=== PATIENT | male | born 1960 | race Caucasian/White ===

== ENCOUNTER 2019-05-31 15:24 | Outpatient (REF) | payer BC, SELFPAY ==
[2019-05-31 19:33] LABS: ALT 43 U/L (12-78); AST 20 U/L (15-37); Albumin 3.9 g/dL (3.4-5.0); Alkaline Phosphatase 73 U/L (46-116); Anion Gap 9.3 mmol/L (3-11); BUN 19 mg/dL (7-18); Bilirubin, Total 0.9 mg/dL (0.2-1.0); CO2 25.7 mmol/L (21.0-32.0); CREATININE 0.91 mg/dL (0.70-1.30); Calcium 9.2 mg/dL (8.5-10.1); Calculated LDL 196 mg/dL; Chloride 105 mmol/L (98-107); Cholesterol 288 mg/dL (50-200); Glucose 115 mg/dL (70-100); HDL Cholesterol 77 mg/dL (40-60); Potassium 4.6 mmol/L (3.5-5.1); Sodium 140 mmol/L (136-145); Total Protein 6.7 g/dL (6.4-8.2); Triglyceride 75 mg/dL (30-150)
== END 2019-05-31 15:44 ==
LOC: NCHCN 15:24
PROVIDERS: PCP Nurse Practitioner; Visit Provider Nurse Practitioner
DX: E78.5 Hyperlipidemia, unspecified (principal)
CPT/HCPCS: 80053; 80061; 83721

== ENCOUNTER 2019-08-23 10:06 | Day surgery (SDC) | payer BC, SELFPAY ==
--- NOTE | 2019-08-23 06:49 | W.COLOREPORT ---
Date of service: 08/23/19 Time of Service: 11:32 Colonoscopy Report Date of procedure: 08/23/19 Pre-op diagnosis general: Colon Cancer Screening Post-op diagnosis procedure note: same Procedure: Colonoscopy Surgeon: Debbie Tavares Anesthesia proc note operative: other (General/ ASA 2/Shadia Ventura, RUTHY) Estimated blood loss (mL): 0 Pathology: none sent Complications: None Disposition: same day Indications: Mr. Johnson is a pleasant 59 year old male seen in the office for a screening colonoscopy. Risks, benefits and complications have been reviewed. Complications include but are not limited to bleeding, pain, perforation, missed small lesion/polyp, sore throat, aspiration and adverse reaction to the medications. Questions were entertained and answered to their satisfaction and they wished to proceed. No guarantees were given or implied. Prep: Miralax/Dulcolax Procedure Start Time: 11:32 Procedure End Time: 11:49 Retraction Time: 10 minutes Findings: Normal colon Procedure Description: After informed consent was obtained the patient was taken to the procedure room and placed in a left decubitous position. Monitors were applied and a time out was done. The patients name, date of , procedure, allergies to medications and metal in their body was reviewed. The patient was then sedated. Once sedated and comfortable a rectal exam was done. External exam was normal. Internal exam revealed a normal sphincter tone and no palpable masses. The prostate felt smooth. The scope was then introduced and retro-flexed. No internal hemorrhoids were identified. The scope was then advanced to the cecum without difficulty. The TI and appendiceal orifice were identified. The prep was adequate. The scope was then slowly retracted over 10 minutes back into the rectum. There were no polyps and no diverticula. The scope was removed and the patient was woken up and taken back to Same day surgery in stable condition. The patient tolerated the procedure well and there were no immediate complications. Follow up: The patient should follow up in 10 years unless they develop changes in bowel habits or other new gastrointestinal complaints.
--- NOTE | 2019-08-23 06:50 | W.PM.DSUDISC ---
Discharge Plan Disposition Patient Disposition: HOME Condition: Good Discharge Details Reason For Visit: Colon Cancer Screening Attending Provider: Debbie Tavares Primary Care Provider: Lorraine Contreras Home Meds and New Rx's Prescriptions: Continued atorvastatin 20 mg tablet 20 mg PO QHS RF: 0 Discontinued polyethylene glycol 3350 17 gram/dose powder 238 g PO ONCE Qty: 238 RF: 0 bisacodyl [Dulcolax (bisacodyl)] 5 mg tablet,delayed release (DR/EC) 5 mg PO ONCE Qty: 4 RF: 0 Discharge Instructions Instructions: Colonoscopy (DC) Additional Instructions: Findings: Normal colonoscopy Follow up: 10 years Please call if you develop: fevers >101.5 Nausea or Vomiting Abdominal pain that is not transient DAY SURGERY UNIT POST ENDOSCOPY INSTRUCTIONS 1. Because there will be medication in your system for the next 24 hours, you may feel a little sleepy. Your coordination will be affected. Therefore: a. Do not drive or operate dangerous equipment for 24 hours. b. Do not drink alcohol beverages for 24 hours (not even beer). c. Plan to go home and rest for the day. 2. Generally there are no restrictions on your activity after a day or so has gone by, but you may feel a bit fatigued for a few days. 3 After you arrive home you may have a light meal and return to a normal diet as you can tolerate it without feeling sick to your stomach. 4. After surgery, you may feel pain or discomfort. This should be only transient, but if it persists please contact your doctor. 5. If there are any questions regarding the findings of your procedure, please feel free to contact your doctor. 6. If you are unable to contact your doctor with a problem, contact the hospital at [phone]. 7. Continue all your regular medications unless directed otherwise. I understand the above instructions and have no questions. Signature of Patient or Responsible Adult Escort Date/Time Name of Responsible Adult Escort Signature of Nurse Date/Time Stand Alone Forms: Colonoscopy Post Instructions, Giorgio Lim (DSU) Activity:: Activity as Tolerated Diet:: As Tolerated Discharge Orders Discharge Orders: Discharge Order (Routine); Ordered 08/23/19 Ordered By: Debbie Tavares Discharge Data Discharge Date/Time-TO BE ENTERED AT DEPARTURE: 08/23/19 12:25 Discharge Comment: D/C home with , VSS, ambulating well DS: Diagnosis Discharge Diagnosis (1) S/P colonoscopy: Status: Acute
[2019-08-23 10:22] VITALS: BP 125/81; PULSE 66; RESP 16; TEMP 36.3; O2SAT 98
[2019-08-23] MEDS: Lactated Ringers 1,000 ML 80 ML IV (10:46)
[2019-08-23 12:25] VITALS: BP 122/77; PULSE 50; RESP 16; TEMP 36.3; O2SAT 97
== END 2019-08-23 12:25 | disposition home or self-care (01) ==
PROVIDERS: PCP Nurse Practitioner; Visit Provider Surgery
PROC: 0DJD8ZZ Inspection of Lower Intestinal Tract, Via Natural or Artificial Opening Endoscopic (ICD-10-PCS; CPT 45378; principal; 2019-08-23 11:30)
DX: Z12.11 Encounter for screening for malignant neoplasm of colon (principal)
CPT/HCPCS: 45378

== ENCOUNTER 2020-05-22 16:30 | Outpatient (REF) | payer BC, SELFPAY ==
[2020-05-22 17:16] LABS: Calculated LDL 138 mg/dL (<100); Cholesterol 231 mg/dL (<200); HDL Cholesterol 65 mg/dL (40-60); Triglyceride 143 mg/dL (<150)
[2020-05-22 17:39] LABS: Hemoglobin A1C 5.9 % (3.8-5.6)
== END 2020-05-22 16:50 ==
LOC: NCHCN 16:30
PROVIDERS: PCP Nurse Practitioner; Visit Provider Nurse Practitioner
DX: E78.5 Hyperlipidemia, unspecified (principal); R73.9 Hyperglycemia, unspecified
CPT/HCPCS: 80061; 83036

== ENCOUNTER 2022-04-10 10:08 | Outpatient (REF) | payer BC, SELFPAY ==
[2022-04-10 15:05] LABS: Hemoglobin A1C 5.9 % (<5.7)
[2022-04-10 16:14] LABS: ALT 39 U/L (16-63); AST 14 U/L (15-37); Albumin 4.1 g/dL (3.4-5.0); Alkaline Phosphatase 77 U/L (46-116); BUN 21 mg/dL (7-18); Bilirubin, Total 0.5 mg/dL (0.2-1.0); Calcium 9.1 mg/dL (8.5-10.1); Calculated LDL 238 mg/dL (<100); Chloride 104 mmol/L (98-107); Cholesterol 333 mg/dL (<200); Glucose 104 mg/dL (74-106); HDL Cholesterol 71 mg/dL (40-60); Potassium 4.2 mmol/L (3.5-5.1); Sodium 141 mmol/L (136-145); Total Protein 7.2 g/dL (6.4-8.2); Triglyceride 124 mg/dL (<150)
[2022-04-11 09:49] LABS: Hepatitis C Ab w Rflx HCV PCR Negative (Negative)
[2022-04-11 10:15] LABS: HIV-1/2 Ag & Ab Screen Negative (Negative)
== END 2022-04-10 10:09 | disposition home or self-care (01) ==
LOC: NCHCN 10:08
PROVIDERS: PCP Nurse Practitioner; Visit Provider Nurse Practitioner Family
DX: Z00.00 Encounter for general adult medical examination without abnormal findings (principal); E78.5 Hyperlipidemia, unspecified; R73.03 Prediabetes; Z87.891 Personal history of nicotine dependence; Z82.49 Family history of ischemic heart disease and other diseases of the circulatory system; Z83.3 Family history of diabetes mellitus; Z11.4 Encounter for screening for human immunodeficiency virus [HIV]; Z11.59 Encounter for screening for other viral diseases
CPT/HCPCS: 80053; 80061; 86803; 87389; 83036

== ENCOUNTER 2022-10-29 15:48 | Outpatient (REF) | payer BC, SELFPAY ==
[2022-10-29 17:03] LABS: ALT 46 U/L (16-63); AST 20 U/L (15-37); Albumin 4.1 g/dL (3.4-5.0); Alkaline Phosphatase 79 U/L (46-116); Anion Gap 10.2 mmol/L (3-11); BUN 15 mg/dL (7-18); Bilirubin, Total 0.6 mg/dL (0.2-1.0); CO2 25.8 mmol/L (21.0-32.0); CREATININE 1.2 mg/dL (0.70-1.30); Calcium 9.2 mg/dL (8.5-10.1); Calculated LDL 121 mg/dL (<100); Chloride 106 mmol/L (98-107); Cholesterol 225 mg/dL (<200); Glucose 125 mg/dL (74-106); HDL Cholesterol 62 mg/dL (40-60); Potassium 4.3 mmol/L (3.5-5.1); Sodium 142 mmol/L (136-145); Total Protein 7.2 g/dL (6.4-8.2); Triglyceride 213 mg/dL (<150)
== END 2022-10-29 15:49 | disposition home or self-care (01) ==
LOC: NCHCN 15:48
PROVIDERS: PCP Nurse Practitioner; Visit Provider Nurse Practitioner Family
DX: Z00.00 Encounter for general adult medical examination without abnormal findings (principal)
CPT/HCPCS: 80053; 80061

== ENCOUNTER 2023-02-10 13:14 | Outpatient (REF) | payer BC, SELFPAY ==
--- NOTE | 2023-02-10 11:45 | SKI_PTH ---
PATIENT: Gaudencio Johnson JR LOC: [facility] U#:[id number] AGE/SX: 63/M ROOM: RE02/10/[address]: Jay Arizmendi MD : [id number] BED: DIS: 02/10/2023 SPEC #: [id number] RECD: 02/10/23 14:47 STATUS: NOEMI REQ #: [id number] SOC[place]: 02/10/23 11:[address]: Jay Arizmendi DEPT: Surgical Specimen RECD BY: Heydi Rosado ENTERED: 02/10/23 14:48 SP TYPE: OSORIO COELHO DR: LILLIANA DWYER, IFRAH Tissues: 1 - SKIN BIOPSY(SHAVE/PUNCH) Procedures: SKIN LEVEL 4 Comments: [id number]
== END 2023-02-10 13:15 | disposition home or self-care (01) ==
LOC: LBN 13:14
PROVIDERS: PCP Nurse Practitioner Family; Visit Provider Otolaryngology
DX: L82.0 Inflamed seborrheic keratosis (principal)
CPT/HCPCS: 88305

== ENCOUNTER 2024-04-15 20:38 | Outpatient (REF) | payer BC, SELFPAY ==
[2024-04-15 19:37] LABS: HCT 42.4 % (40.0-50.0); HGB 14.2 g/dL (13.5-17.5); MCHC 33.5 % (32.0-36.0); MCV 93 fL (80-95); MPV 9.3 fL (8.0-11.0); Platelet Count 299 10^3/uL (130-400); RBC 4.58 10^6/uL (4.36-5.78); RDW 12.4 % (11.8-14.1); RDW-SD 42.1 fL; WBC 9.19 10^3/uL (4.4-10.8)
[2024-04-15 20:04] LABS: ALT 34 U/L (16-63); AST 20 U/L (15-37); Albumin 3.9 g/dL (3.4-5.0); Alkaline Phosphatase 75 U/L (46-116); Anion Gap 9.6 mmol/L (3-11); BUN 26 mg/dL (7-18); Bilirubin, Total 0.6 mg/dL (0.2-1.0); CO2 26.4 mmol/L (21.0-32.0); CREATININE 1.3 mg/dL (0.70-1.30); Calcium 9.1 mg/dL (8.5-10.1); Calculated LDL 158 mg/dL (<100); Chloride 104 mmol/L (98-107); Cholesterol 259 mg/dL (<200); Estimated GFR 61.73 (mL/min/1.73m2); Glucose 93 mg/dL (74-106); HDL Cholesterol 78 mg/dL (40-60); Potassium 4.1 mmol/L (3.5-5.1); Sodium 140 mmol/L (136-145); Total Protein 7.3 g/dL (6.4-8.2); Triglyceride 119 mg/dL (<150)
== END 2024-04-15 20:39 | disposition home or self-care (01) ==
LOC: NCHCN 20:38
PROVIDERS: PCP Nurse Practitioner Family; Visit Provider Nurse Practitioner Family
DX: Z00.00 Encounter for general adult medical examination without abnormal findings (principal); Z13.1 Encounter for screening for diabetes mellitus; Z13.220 Encounter for screening for lipoid disorders; Z13.228 Encounter for screening for other metabolic disorders; Z13.0 Encounter for screening for diseases of the blood and blood-forming organs and certain disorders involving the immune mechanism
CPT/HCPCS: 80053; 80061; 85027; 83036

== ENCOUNTER 2024-07-23 11:49 | Outpatient (CLI) | payer BC, SELFPAY ==
--- NOTE | 2024-07-23 | DI.RAD_ITS ---
Exam(s) XR KNEE LT 3V AP,LAT,BARRON EXAM: XR KNEE LT 3V AP,LAT,BARRON CLINICAL HISTORY: LT KNEE PAIN. TECHNIQUE: 2D digital imaging was performed. Three views. COMPARISON: No exams were available for comparison FINDINGS: BONES: No acute fracture is present. No bony destructive lesion is seen. JOINTS: The knee is normally aligned. No joint effusion is seen. SOFT TISSUE: Focal swelling anterior to the patella could represent prepatellar bursitis versus postt raumatic hematoma. No foreign body. IMPRESSION: Prepatellar soft tissue swelling. DATA REPOSITORY: RADIATION DOSE DELIVERED:
== END 2024-07-23 12:09 ==
LOC: DI 11:51
PROVIDERS: PCP Nurse Practitioner Family; Visit Provider Physician Assistant Medical
DX: M25.562 Pain in left knee (principal); R22.42 Localized swelling, mass and lump, left lower limb
CPT/HCPCS: 73562